=== PATIENT | female | born 1950 | race Hispanic/Latino ===

== ENCOUNTER 2017-06-14 11:14 | Emergency (ER) | payer OTHER ==
[2017-06-14] MEDS ORDERED: MORPHINE IM ONE (11:22)
[2017-06-14] MEDS ORDERED: ZOFRAN ODT PO ONE (11:22)
--- NOTE | 2017-06-14 11:22 | Emergency Department Report ---
Stated Complaint: BACK PAIN Time Seen by Provider: 06/14/17 11:17 - HPI History of Present Illness: PT states she was bowling and she fell when she stepped back. injury occurred at 1000. - ROS Review of Systems: - headache - loc - Exam Physical Exam: pt ambulatory in triage + lumbar tenderness MSE screening note: Focused history and physical exam performed. Due to findings the following was ordered: xr ED Disposition for MSE Condition: Stable
--- NOTE | 2017-06-14 12:10 | XRay Report ---
Lumbar spine: Trauma, pain. Mild spondylosis noted at multiple levels with the exception of L5. There is a mild levoscoliosis and rotation of the mid lumbar spine. The alignment is well maintained as is the vertebral height and interspaces. Impressions: Spondylosis and scoliosis with no recent finding. RIGHT HIP: Trauma, pain. The bony architecture is intact without evidence of fracture or dislocation. No significant soft tissue abnormality is seen. IMPRESSION: Normal right hip.
--- NOTE | 2017-06-14 13:12 | Emergency Department Report ---
ED Fall HPI - General Chief Complaint: Fall Stated Complaint: BACK PAIN Time Seen by Provider: 06/14/17 11:17 Source: patient, family Mode of arrival: Ambulatory - History of Present Illness Initial Comments: Patient here reports that she was bowling today and fell backwards complaining of lower back pain and right hip pain. Denies any head injury or nausea or vomiting. She also complains that she went to urinate today and when she wiped she had some blood on the tissue. Denies any abdominal pain. Denies any nausea or vomiting. Denies any numbness or tingling to extremities. Denies any fever or chills. She was brought to the hospital by her family member. Pain is 10 out of 10 and achy. Better with rest and worse with movement. MD Complaint: fall -: This afternoon Fall From: standing When Fall Occurred: 1-3 hours [employer] Fall Witnessed: yes, by bystander Place Fall Occurred: other (bowling alley) Loss of Consciousness: none Prolonged Down Time?: no Symptoms Prior to Fall: none Location: back, pelvis (Rt hip) Severity: severe Severity scale (0 -10): 10 Quality: aching Context: tripped/slipped Associated Symptoms: hematuria. denies: headache, neck pain, numbness, weakness , chest paint, shortness of breath, abdominal pain, unable to walk, lightheaded , vertigo, confusion - Related Data Previous Rx's Medication Instructions Recorded Last Taken Type Levofloxacin [Levaquin] 750 mg PO QDAY #9 tablet 06/14/17 Unknown Rx Naproxen [Naprosyn TAB] 500 mg PO BID PRN #12 tablet 06/14/17 Unknown Rx Allergies Allergy/AdvReac Type Severity Reaction Status Date / Time codeine Allergy Unknown Verified 06/14/17 11:18 promethazine HCl Allergy Anaphylaxis Verified 06/14/17 11:18 [From Phenergan] sulfamethoxazole Allergy Rash Verified 06/14/17 11:18 [From Bactrim] trimethoprim [From Bactrim] Allergy Rash Verified 06/14/17 11:18 ED Review of Systems ROS: Stated complaint: BACK PAIN Other details as noted in HPI Comment: All other systems reviewed and negative Constitutional: no symptoms reported Eyes: denies: vision change Respiratory: no symptoms reported Cardiovascular: denies: chest pain, palpitations, dyspnea on exertion, orthopnea , edema, syncope, paroxysmal nocturnal dyspnea Gastrointestinal: denies: abdominal pain, nausea, vomiting, diarrhea, constipation Genitourinary: hematuria. denies: urgency, dysuria, frequency, discharge Musculoskeletal: back pain, arthralgia. denies: joint swelling, myalgia Skin: denies: rash Neurological: denies: headache, weakness, numbness, paresthesias, confusion, abnormal gait, vertigo ED Past Medical Hx - Past Medical History Previous Medical History?: No - Surgical History Past Surgical History?: Yes Hx Cholecystectomy: Yes Additional Surgical History: Hysterectomy - Family History Family history: no significant - Social History Smoking Status: Former Smoker Substance Use Type: Non Opiate Pain, Other - Medications Home Medications: Home Medications Medication Instructions Recorded Confirmed Last Taken Type Levofloxacin [Levaquin] 750 mg PO QDAY #9 tablet 06/14/17 Unknown Rx Naproxen [Naprosyn TAB] 500 mg PO BID PRN #12 tablet 06/14/17 Unknown Rx ED Physical Exam - General Limitations: No Limitations General appearance: alert, in no apparent distress - Head Head exam: Present: atraumatic, normocephalic, normal inspection - Eye Eye exam: Present: normal appearance, PERRL, EOMI. Absent: nystagmus, periorbital swelling, periorbital tenderness Pupils: Present: normal accommodation - ENT ENT exam: Present: normal exam, normal orophraynx, mucous membranes moist - Neck Neck exam: Present: normal inspection, full ROM, other (No c-spine tenderness). Absent: tenderness, lymphadenopathy, thyromegaly - Respiratory Respiratory exam: Present: normal lung sounds bilaterally. Absent: respiratory distress, chest wall tenderness - Cardiovascular Cardiovascular Exam: Present: regular rate, normal rhythm, normal heart sounds. Absent: systolic murmur, diastolic murmur - GI/Abdominal GI/Abdominal exam: Present: soft, normal bowel sounds. Absent: distended, tenderness, guarding, rebound, rigid, organomegaly, mass, bruit, pulsatile mass , hernia - Extremities Exam Extremities exam: Present: normal inspection, full ROM, normal capillary refill , calf tenderness, other (no joint deformity, crepitus or effusion. No laceration or abrasions noted. No ecchymosis or contusion noted. Bilateral hip normal inspection and examination. +2 pulses to all extremities. No neurovascular compromise.). Absent: tenderness, pedal edema, joint swelling - Back Exam Back exam: Present: normal inspection, full ROM. Absent: tenderness, CVA tenderness (R), CVA tenderness (L), muscle spasm, paraspinal tenderness, vertebral tenderness, rash noted - Expanded Back Exam Expanded Back exam: Absent: saddle anesthesia Back exam: Negative Straight Leg Raising: Left, Right - Neurological Exam Neurological exam: Present: alert, oriented X3, normal gait, reflexes normal. Absent: motor sensory deficit - Expanded Neurological Exam Expanded Neurological exam: Absent: innattentive, memory loss-remote event, memory loss- recent event, ataxia, receptive aphasia, expressive aphasia, total aphasia, tremor, protecting the airway Patient oriented to: Present: person, place, time Speech: Present: fluid speech Cranial nerves: EOM's Intact: Normal, Gag Reflex: Normal, Tongue Deviation: Normal, Nystagmus: Normal, Facial Sensation: Normal Cerebellar function: Romberg: Normal Upper motor neuron: Pronator Drift: Normal, Sensory Extinction: Normal Sensory exam: Upper Extremity Light Touch: Normal, Upper Extremity Temperature: Normal, UE 2 Point Discrimination: Normal, Lower Extremity Light Touch: Normal, Lower Extremity Temperature: Normal, LE 2 Point Discrimination: Normal Motor strength exam: RUE: 5, LUE: 5, RLE: 5, LLE: 5 DTR: bicep (R): 2+, bicep (L): 2+, tricep (R): 2+, tricep (L): 2+, knee (R): 2+ , knee (L): 2+, ankle (R): 2+, ankle (L): 2+ Best Eye Response ([place]): (4) open spontaneously Best Motor Response ([place]): (6) obeys commands Best Verbal Response ([place]): (5) oriented Leighann Total: 15 - Psychiatric Psychiatric exam: Present: normal affect, normal mood - Skin Skin exam: Present: warm, dry, intact, normal color. Absent: rash ED Course Vital Signs 06/14/17 06/14/17 06/14/17 11:18 14:13 16:27 Temperature 97.6 F 98 F Pulse Rate 71 74 Respiratory 18 20 18 Rate Blood Pressure 159/60 Blood Pressure 142/60 [Left] O2 Sat by Pulse 98 100 Oximetry - Reevaluation(s) Reevaluation #1: 06/14/17 12:00 Patient received morphine for pain which did not relieve her pain. She received this and triage area. Reevaluation #2: 06/14/17 15:44 She received Toradol 60 mg IM in emergency room which relieved her pain. I instructed her that her x-ray of her right hip was negative for any fracture or dislocation and x-ray of lumbar spine reveal that she has arthritis and scoliosis .she says she really knows that she has scoliosis but she didn't notice she has arthritis in her back. Reevaluation #3: 06/14/17 15:53 Urinalysis positive for bacterial infection with positive bacteria, positive leukocyte Estrace, positive white count and positive nitrites. She was started on Levaquin 750 mg one tablet by mouth. ED Medical Decision Making - Lab Data Lab Results 06/14/17 Range/Units 14:07 Urine Color Yellow (Yellow) Urine Turbidity Clear (Clear) Urine pH 6.0 (5.0-7.0) Ur Specific [place] 1.013 (1.003-1.030) Urine Protein <15 mg/dl (Negative) mg/dL Urine Glucose (UA) Neg (Negative) mg/dL Urine Ketones Neg (Negative) mg/dL Urine Blood Neg (Negative) Urine Nitrite Pos (Negative) Urine Bilirubin Neg (Negative) Urine Urobilinogen < 2.0 (<2.0) mg/dL Ur Leukocyte Esterase Sm (Negative) Urine WBC (Auto) 7.0 H (0.0-6.0) /HPF Urine RBC (Auto) 1.0 (0.0-6.0) /HPF U Epithel Cells (Auto) 1.0 (0-13.0) /HPF Urine Bacteria (Auto) 1+ (Negative) /HPF Urine Mucus Few /HPF Urine culture sent - Radiology Data Radiology results: report reviewed X-ray of lumbar spine reveals spondylolisthesis and scoliosis. X-ray of right hip reveals normal exam. - Medical Decision Making ED course: here with her daughter reports that she had a fall and fell backwards while bowling today. She's denies any head injury but reports right hip and lower back pain. She was given morphine 4 mg at emergency room for pain which middle minimally relieved her pain. She was given Toradol 60 mg IM in emergency room which relieved her pain. Patient able to ambulate without any difficulties. X-ray of lumbar spine reveals spondylolisthesis and scoliosis and x-ray for right hip reveal no bony abnormality. Patient pain was 10 out of 10 when she came to ED now it is 2 out of 10. Her back exam is normal without any vertebral tenderness., She is neurologically intact had and neck exam is normal.. Patient able to tolerate oral fluids without any difficulties. During physical assessment patient voiced that when she wipes after urinating she saw some blood therefore UA sent and patient positive for urinary tract infection. Urine culture sent I have unit. Patient was given then Levaquin 750 mg by mouth and emergency room to cover urinary tract infection and she'll be discharged home with prescription for Levaquin and naproxen. Patient able to tolerate liquids well. She was understanding of her discharge instruction and treatment plan. Discharged home and referred to Dr. Angelica Chase for primary care. Critical care attestation.: If time is entered above; I have spent that time in minutes in the direct care of this critically ill patient, excluding procedure time. ED Disposition Clinical Impression: Arthralgia of right hip, Degenerative disc disease, lumbar, Acute cystitis without hematuria Lower back pain Qualifiers: Chronicity: acute Back pain laterality: bilateral Sciatica presence: without sciatica Qualified Code(s): M54.5 - Low back pain Accidental fall Qualifiers: Encounter type: initial encounter Qualified Code(s): W19.XXXA - Unspecified fall, initial encounter Disposition: TO HOME OR SELFCARE Is pt being admited?: No Does the pt Need Aspirin: No Condition: Stable Instructions: Urinary Tract Infection in Women (ED), Fall Prevention for Older Adults (ED), Arthralgia (ED), Back Pain (ED) Additional Instructions: Please follow up with primary care as recommended These follow-up with orthopedic doctor as instructed. You can take Naprosyn as prescribed for pain. Your Urine shows that he have a urinary tract infection so please take antibiotic as prescribed and increase her fluid intake. Prescriptions: Levofloxacin [Levaquin] 750 mg PO QDAY #9 tablet Naproxen [Naprosyn TAB] 500 mg PO BID PRN #12 tablet PRN Reason: Pain Referrals: EMELIA MCBRIDE MD [Staff Physician] - 3-5 Days Forms: Accompanied Note, Work/School Release Form(ED)
[2017-06-14] MEDS ORDERED: TORADOL IM ONE (14:01)
[2017-06-14 14:58] LABS: Bacteria,Urine 1+ /HPF (Negative); Bilirubin,Urine NEG (Negative); Blood,Urine NEG (Negative); Ketones,Urine NEG (Negative); Leukocyte Esterase,Urine SM (Negative); Mucus,Urine FEW /HPF; Nitrite,Urine POS (Negative); Protein,Urine <15 mg/dL mg/dL (Negative); Urobilinogen,Urine < 2.0 mg/dL (<2.0)
[2017-06-14] MEDS ORDERED: LEVAQUIN PO ONE (15:52)
[2017-06-14 16:28] VITALS: BP 142/60
== END 2017-06-14 16:28 | disposition home or self-care (01) ==
LOC: ED 11:14
DX: M51.36 Other intervertebral disc degeneration, lumbar region (principal); M25.551 Pain in right hip; N30.00 Acute cystitis without hematuria; M54.5 Low back pain; W18.30XA Fall on same level, unspecified, initial encounter; Y93.9 Activity, unspecified; Y92.9 Unspecified place or not applicable; Y99.9 Unspecified external cause status
CPT/HCPCS: 72100; 73502; 81001; 87076; 87086; 87186; 96372; 99283; J1885; J2270; Q0162

== ENCOUNTER 2019-02-07 11:00 | Outpatient (CLI) | payer OTHER ==
--- NOTE | 2019-02-07 14:12 | Mammography Report ---
BILATERAL DIGITAL SCREENING MAMMOGRAM with CAD: 02/07/19 11:00:00 CLINICAL: Routine screening. COMPARISON:None available. FINDINGS: There are scattered areas of fibroglandular density. No mass, architectural distortion or suspicious calcifications. IMPRESSION: No mammographic evidence of malignancy. BI-RADS CATEGORY: 2 -- Benign RECOMMENDATION: Routine mammographic screening in one year. COMMENT: Patient follow-up letters are generated by our [employer] application.
== END 2019-02-07 11:01 | disposition home or self-care (01) ==
LOC: MAMMO 11:00
PROVIDERS: ATTEND Internal Medicine
DX: Z12.31 Encounter for screening mammogram for malignant neoplasm of breast (principal)
CPT/HCPCS: 77067